=== PATIENT | male | born 1965 | race Caucasian/White ===

== ENCOUNTER 2022-12-20 12:02 | Emergency (ER) | payer OTHER, SELFPAY ==
[2022-12-20 12:09] VITALS: BP 165/80; PULSE 101; RESP 20; TEMP 36.8; O2SAT 94; BMI 33.7
--- NOTE | 2022-12-20 12:52 | ED_ITS ---
HPI - General Adult General Chief complaint: Skin/Abscess/Foreign Body Stated complaint: Red, aching lower legs Time Seen by Provider: 12/20/22 12:24 History of Present Illness HPI narrative: This 57-year-old male comes in reporting redness and warmth typical of cellulitis in the right lower extremity extending from his ankle part way up the anterior surface of his lower leg. He states that he has had cellulitis in the past. He does not report any other symptoms. These symptoms began yesterday and it seems to have spread a bit today. Related Data Home Medications Medication Instructions Recorded Confirmed lisinopril 20 mg tablet 20 mg PO DAILY 12/20/22 12/20/22 Previous Rx's Medication Instructions Recorded cephalexin 500 mg capsule 500 mg PO TID 7 days #21 caps 12/20/22 Allergies Allergy/AdvReac Type Severity Reaction Status Date / Time No Known Drug Allergies Allergy Verified 12/20/22 12:09 Review of Systems Status of ROS: Reports: 10 or more systems reviewed and unremarkable except as noted in History and below Narrative: Constitutional: No fevers, no weight gain or loss. Eyes: No discharge. No vision changes. HENT: No congestion, no sore throat, no ear pain. Cardiovascular: No chest pain, no palpitations. Respiratory: No shortness of breath, no wheezes, no cough. Gastrointestinal: No abdominal pain, no vomiting, no diarrhea. Genitourinary: No dysuria, no hematuria. Musculoskeletal: Normal range of motion. Skin: No rashes, no pruritis. Erythema on the anterior surface of the right lower extremity as described above. Neurological: No dizziness, weakness, sensory change, speech change. Endo/Heme/Allergies: No bruising or bleeding. No polydipsia. Pysch: no suicidality, no anxiety, no insomnia. All other systems reviewed and are negative. Exam Narrative: Exam Narrative: Constitutional: Well-developed, well-nourished, no acute distress. HEENT: Normocephalic, atraumatic. Neck: Normal range of motion. Nontender. Supple. Heart: Intact distal pulses. Lungs: No chest discomfort. No wheezes, rhonchi, or rales. Abdomen: Nontender. Back: Normal range of motion. Extremities: Normal range of motion. No injury. Skin: Intact. No rash. Erythema on the anterior surface of the right lower extremity extending from the ankle about a [address] up to the knee. It is not circumferential. Neurologic: No altered sensation. No weakness. Alert and oriented. Psychiatric: No suicidality. No anxiety or depression. No insomnia. Nursing notes and vitals signs are reviewed. Const: Vital Signs, click to edit/add: Vital Signs - 24 hr 12/20/22 12:09 Temperature 98.3 F Pulse Rate [Right Pulse Oximeter] 101 H Respiratory Rate 20 Blood Pressure [Ri ght Upper Arm] 165/80 H Pulse Oximetry 94 Oxygen Delivery Me thod Room Air Course Vital Signs Vital signs: Initial Vital Signs Temperature 98.3 F 12/20/22 12:09 Temperature Source Temporal Artery Scan 12/20/22 12:09 Pulse Rate 101 H 12/20/22 12:09 Respiratory Rate 20 12/20/22 12:09 Blood Pressure 165/80 H 12/20/22 12:09 Blood Pressure Mean 108 12/20/22 12:09 Blood Pressure Position Sitting 12/20/22 12:09 Pulse Oximetry 94 12/20/22 12:09 Oxygen Delivery Method Room Air 12/20/22 12:09 Vital Signs Temperature 98.3 F 12/20/22 12:09 Pulse Rate 101 H 12/20/22 12:09 Respiratory Rate 20 12/20/22 12:09 Blood Pressure 165/80 H 12/20/22 12:09 Pulse Oximetry 94 12/20/22 12:09 Oxygen Delivery Method Room Air 12/20/22 12:09 Temperature 98.3 F 12/20/22 12:09 Pulse Rate 101 H 12/20/22 12:09 Respiratory Rate 20 12/20/22 12:09 Blood Pressure 165/80 H 12/20/22 12:09 Pulse Oximetry 94 12/20/22 12:09 Oxygen Delivery Method Room Air 12/20/22 12:09 Medical Decision Making MDM Narrative Medical decision making narrative: This patient comes in with redness and warmth with mild swelling in his right lower extremity typical of cellulitis. He is otherwise feeling normal. He did receive a prescription for Keflex and instructions were given regarding signs or symptoms that would indicate a need for return and re-evaluation. Discharge Plan Discharge Clinical Impression: Cellulitis Patient Disposition: Home, Self-Care Condition: Stable Additional Instructions: Take medication as prescribed. Follow up with MD or return if worsening. Prescriptions: New cephalexin 500 mg capsule 500 mg PO TID 7 Days Qty: 21 0RF No Action lisinopril 20 mg tablet 20 mg PO DAILY Stand Alone Forms: [employer] Info Instructions
== END 2022-12-20 13:11 | disposition home or self-care (01) ==
LOC: ED 12:56
PROVIDERS: Emergency Provider Emergency Medicine Emergency Medical Services
DX: L03.115 Cellulitis of right lower limb (principal)
CPT/HCPCS: 99283; 99284